=== PATIENT | male | born 1990 | race Caucasian/White ===

== ENCOUNTER 2020-02-12 02:21 | Emergency (ER) | payer MEDICAID ==
--- NOTE | 2020-02-12 02:57 | ED Physician Documentation ---
History of Present Illness - Stated complaint Stated Complaint: FEVER/WEAK - Chief complaint Chief Complaint: Fever - History obtained from History obtained from: Patient - History of Present Illness Timing: How many weeks ago (1) Improved by: no ameliorating factors Worsened by: no exacerbating factors - Additonal information Additional information: c/o 1 week of chills, sweats, generalized weakness. mild dyspnea and cough, although cough has been improving.mstates fevers although Tmax at home 99.3 (he is febrile on ED presentation) Review of Systems Constitutional: reports: Fever, Chills, Myalgias, Fatigue, Sweats Nose: reports: Reviewed and negative Throat: reports: Reviewed and negative Cardiac: denies: Chest pain / pressure Respiratory: reports: Dyspnea, Cough GI: reports: Reviewed and negative PD PAST MEDICAL HISTORY - Past Medical History Past Medical History: No Cardiovascular: None Respiratory: None Neuro: None Endocrine/Autoimmune: None GI: None : None HEENT: None Psych: None Musculoskeletal: None Derm: None - Past Surgical History Past Surgical History: No - Allergies Allergies/Adverse Reactions: Allergies Allergy/AdvReac Type Severity Reaction Status Date / Time No Known Drug Allergies Allergy Verified 02/12/20 02:39 - Social History Does the pt smoke?: Yes Smoking Status: Current every day smoker Does the pt drink ETOH?: Yes Does the pt have substance abuse?: No - Immunizations Immunizations are current?: No - POLST Patient has POLST: No PD ED PE NORMAL - Vitals Vital signs reviewed: Yes - General General: Alert and oriented X 3, No acute distress, Well developed/nourished - HEENT HEENT: Moist mucous membranes, Pharynx benign - Neck Neck: Supple, no meningeal sign - Cardiac Cardiac: RRR, No murmur - Respiratory Respiratory: No respiratory distress, Clear bilaterally - Abdomen Abdomen: Soft, Non tender Results - Vitals Vitals: Vital Signs - 24 hr 02/12/20 02/12/20 02/12/20 02:35 03:29 04:21 Temperature 38.1 C H 37.1 C Heart Rate 113 H 92 Respiratory 17 16 17 Rate Blood Pressure 148/92 H 126/81 H O2 Saturation 98 95 02/12/20 02/12/20 05:49 05:50 Temperature Heart Rate 91 Respiratory 16 16 Rate Blood Pressure 132/82 H O2 Saturation 97 Oxygen O2 Source Room air - Rads (name of study) chest xray Radiology: Prelim report reviewed, See rad report PD MEDICAL DECISION MAKING - ED course Complexity details: reviewed results, re-evaluated patient, considered differential, d/w patient Departure - Departure Disposition: 01 Home, Self Care Clinical Impression: Fever Condition: Good Instructions: ED Fever Unconf Cause, ED Fever Control Discharge Date/Time: 02/12/20 05:50
[2020-02-12] MEDS ORDERED: ACETAMINOPHEN 325 MG TABLET PO STA (03:17)
--- NOTE | 2020-02-12 04:03 | XRAY Report ---
Reason: fever, dyspnea Procedure Date: 02/12/2020 Accession Number: [id number] / [id number] Procedure: XR - Chest 1 View X-Ray CPT Code: 69429 Final Report FULL RESULT: EXAM: CHEST RADIOGRAPHY EXAM DATE: 02/12/2020 03:53 AM. CLINICAL HISTORY: Fever, dyspnea. COMPARISON: None. TECHNIQUE: 1 view. FINDINGS: Lungs/Pleura: Low lung volumes, producing crowding of the pulmonary vasculature. No focal infiltrate, effusion, or pneumothorax. Mediastinum: Within exam limitations, the cardiomediastinal contour is normal. Other: None. IMPRESSION: Low lung volumes, but no evidence of acute cardiopulmonary disease. RADIA
[2020-02-12 06:03] VITALS: BP 132/82
== END 2020-02-12 05:50 | disposition home or self-care (01) ==
LOC: ED 02:21
DX: R50.9 Fever, unspecified (principal); R06.09 Other forms of dyspnea; R05 Cough; F17.200 Nicotine dependence, unspecified, uncomplicated
CPT/HCPCS: 71045; 87635; 99283; 99284; A9270; 81599

== ENCOUNTER 2020-02-23 06:57 | Emergency (ER) | payer MEDICAID ==
[2020-02-23] MEDS ORDERED: CHERRY SYRUP 10 ML UDC PO ONE (07:32)
[2020-02-23] MEDS ORDERED: DEXAMETHASONE 10 MG/ML VIAL PO STA (07:32)
--- NOTE | 2020-02-23 07:37 | ED Physician Documentation ---
PD HPI FEVER - Stated complaint Stated Complaint: FEVER/SOA - Chief complaint Chief Complaint: Fever - History obtained from History obtained from: Patient - History of Present Illness Timing - onset: Last night Timing duration: Hours Timing details: Gradual onset, Now resolved Associated symptoms: Chills, Ear pain, Chest pain, Dyspnea. No: Dry cough, Productive cough Contributing factors: Sick contact (He has been in his home for the past 2 weeks going out twice for groceries. He has 2 roomates. One is working on the [employer] and the other is [employer] and is just back from deployment and is quarantined at home. Neither has symptoms.) Similar symptoms before: No diagnosis Recently seen: Emergency Dept - Additional information Additional information: Previously well 29-year-old male has developed a fever last night with chills and aches. He was able to sleep he awoke this morning he had fever again felt some shortness of breath and pain in his left anterior chest and he became concerned and has come to the emergency department. He did have a fever 10 days ago and was evaluated here in the emergency department and a coronavirus test was done which was negative. The patient denies any respiratory symptoms other than a feeling of shortness of breath. He does have some muffled hearing and burning pain in his right ear. Review of Systems Constitutional: reports: Fever, Chills, Myalgias, Fatigue Eyes: denies: Decreased vision Ears: reports: Loss of hearing, Ear pain Nose: denies: Rhinorrhea / runny nose, Congestion Throat: denies: Sore throat Cardiac: reports: Chest pain / pressure. denies: Palpitations, Pedal edema, Calf pain Respiratory: reports: Dyspnea. denies: Cough, Wheezing GI: denies: Abdominal Pain, Nausea, Vomiting, Constipation, Diarrhea : denies: Dysuria PD PAST MEDICAL HISTORY - Past Medical History Cardiovascular: None Respiratory: None Neuro: None Endocrine/Autoimmune: None GI: None : None HEENT: None Psych: None Musculoskeletal: None Derm: None - Past Surgical History Past Surgical History: No - Present Medications Home Medications: Ambulatory Orders Medication Instructions Recorded Confirmed Azithromycin [Zithromax] 250 mg PO DAILY #6 tablet 02/23/20 - Allergies Allergies/Adverse Reactions: Allergies Allergy/AdvReac Type Severity Reaction Status Date / Time No Known Drug Allergies Allergy Verified 02/23/20 07:05 - Social History Does the pt smoke?: Yes Smoking Status: Current every day smoker Does the pt drink ETOH?: Yes Does the pt have substance abuse?: No - Immunizations Immunizations are current?: No - POLST Patient has POLST: No PD ED PE NORMAL - Vitals Vital signs reviewed: Yes (hypertensive mild) - General General: Alert and oriented X 3, No acute distress, Well developed/nourished - HEENT HEENT: Atraumatic, PERRL, EOMI, Pharynx benign, Dentition benign, Other (The left TM is minimally inflamed along the umbo with tympanosclerosis present inferiorly. The right is inflamed in the attic with distortion of the landmarks.) - Neck Neck: Supple, no meningeal sign, No bony TTP - Cardiac Cardiac: RRR, No murmur - Respiratory Respiratory: No respiratory distress, Clear bilaterally - Abdomen Abdomen: Soft, Non tender - Back Back: No CVA TTP, No spinal TTP - Derm Derm: Normal color, Warm and dry, No rash - Extremities Extremities: No deformity, No edema, No calf tenderness / cord - Neuro Neuro: Alert and oriented X 3, network designer 2-12 intact, No motor deficit, No sensory deficit, Normal speech Eye Opening: Spontaneous Motor: Obeys Commands Verbal: Oriented GCS Score: 15 - Psych Psych: Normal mood, Normal affect Results - Vitals Vitals: Vital Signs - 24 hr 02/23/20 02/23/20 07:05 07:35 Temperature 36.9 C Heart Rate 85 88 Respiratory 18 20 Rate Blood Pressure 143/82 H 139/78 H O2 Saturation 99 98 Oxygen O2 Source Room air - EKG (time done) 0720 Rate: Rate (enter#) (67) Rhythm: NSR Ischemia: Normal ST segments Compare to prior EKG: Old EKG unavailable Computer interpretation: Agree with computer - Rads (name of study) chest Radiology: Prelim report reviewed (Impression: Low lung volumes, mild but no evidence of acute cardiopulmonary disease.), EMP read indepedently, See rad report PD MEDICAL DECISION MAKING - ED course Complexity details: reviewed old records, reviewed results, re-evaluated patient, considered differential, d/w patient ED course: 29-year-old male with a fever for the second time the past 2 weeks has otitis on examination. I suspect this may be the culprit on this patient's recurrent fever. He has a paucity of other symptoms with the exception of the pain in the ear the burning pain. His pain in his chest was short-lived maybe 10 minutes and his dyspnea resolved as well. He has a normal-appearing electrocardiogram normal-appearing chest x-ray and I do not suspect CAD as a cause for the patient's symptoms and I did not pursue further testing. He is administered dexamethasone 10 mg orally we will place him on some azithromycin. He is retested for coronavirus. Departure - Departure Disposition: Home, Self Care Clinical Impression: Otitis media Qualifiers: Otitis media type: suppurative Chronicity: acute Laterality: right Recurrence: non-recurrent Spontaneous tympanic membrane rupture: without spontaneous rupture Qualified Code(s): H66.001 - Acute suppurative otitis media without spontaneous rupture of ear drum, right ear Condition: Stable Instructions: ED Otitis Media Acute Adult Follow-Up: [facility] [Provider Group] Prescriptions: Azithromycin [Zithromax] 250 mg PO DAILY #6 tablet
--- NOTE | 2020-02-23 08:00 | XRAY Report ---
Reason: chest pain Procedure Date: 02/23/2020 Accession Number: [id number] / [id number] Procedure: XR - Chest 1 View X-Ray CPT Code: 10370 Final Report FULL RESULT: EXAM: CHEST RADIOGRAPHY EXAM DATE: 02/23/2020 07:54 AM. CLINICAL HISTORY: Chest pain. COMPARISON: CHEST 1 VIEW 02/12/2020 3:31 AM. TECHNIQUE: 1 view. FINDINGS: Lungs/Pleura: No focal opacities evident. No pleural effusion. No pneumothorax. Mediastinum: Within exam limitations, the cardiomediastinal contour is normal. Other: None. IMPRESSION: No focal consolidation. RADIA
[2020-02-23 08:21] VITALS: BP 114/72
== END 2020-02-23 08:16 | disposition home or self-care (01) ==
LOC: ED 06:57
DX: H66.001 Acute suppurative otitis media without spontaneous rupture of ear drum, right ear (principal); F17.200 Nicotine dependence, unspecified, uncomplicated
CPT/HCPCS: 71045; 87635; 93005; 99284; A9270; 81599

== ENCOUNTER 2020-02-25 21:12 | Emergency (ER) | payer MEDICAID ==
--- NOTE | 2020-02-25 21:15 | ED Physician Documentation ---
History of Present Illness - Stated complaint Stated Complaint: CP/SOA - History obtained from History obtained from: Patient (the patient is a 29 y/o m who p/w flu like symptoms that he has had for several weeks now, this is his 3rd visit for the same symptoms. he is c/o feeling that his ears are burning and a mild cough without chest pain, syncope, hemoptysis, headaches, neck pain or rashes. he is currently taking azithromycin, has had 2 negative covid tests, flu test was nev er ordered, had a negagive cxr 2 days ago, neg ekg as well, reports he is otherwise healthy and up to date on all of his immunizations. took ibuprofen 12 hours earlier. denies lower extremity swelling, reports his brother and parents are all healthy.) Review of Systems Constitutional: reports: Chills Eyes: reports: Reviewed and negative Ears: reports: Ear pain Nose: reports: Rhinorrhea / runny nose Throat: reports: Sore throat Cardiac: reports: Reviewed and negative Respiratory: reports: Cough GI: reports: Reviewed and negative : reports: Reviewed and negative Skin: reports: Reviewed and negative Musculoskeletal: reports: Reviewed and negative Neurologic: reports: Reviewed and negative Psychiatric: reports: Reviewed and negative Endocrine: reports: Reviewed and negative Immunocompromised: reports: Reviewed and negative PD PAST MEDICAL HISTORY - Past Medical History Cardiovascular: None Respiratory: None Neuro: None Endocrine/Autoimmune: None GI: None : None HEENT: None Psych: None Musculoskeletal: None Derm: None - Past Surgical History Past Surgical History: No - Present Medications Home Medications: Ambulatory Orders Medication Instructions Recorded Confirmed Azithromycin [Zithromax] 250 mg PO DAILY #6 tablet 02/23/20 - Allergies Allergies/Adverse Reactions: Allergies Allergy/AdvReac Type Severity Reaction Status Date / Time No Known Drug Allergies Allergy Verified 02/25/20 21:18 - Social History Does the pt smoke?: Yes Smoking Status: Current every day smoker Does the pt drink ETOH?: Yes Does the pt have substance abuse?: No - Immunizations Immunizations are current?: No - POLST Patient has POLST: No PD ED PE NORMAL - Vitals Vital signs reviewed: Yes - General General: Alert and oriented X 3, No acute distress, Well developed/nourished - HEENT HEENT: Atraumatic, PERRL, EOMI, Ears normal, Moist mucous membranes, Pharynx benign, Dentition benign - Neck Neck: Supple, no meningeal sign, No bony TTP, No adenopathy, Thyroid normal, No JVD, No bruit - Cardiac Cardiac: RRR, No murmur, Strong equal pulses - Respiratory Respiratory: No respiratory distress, Clear bilaterally - Abdomen Abdomen: Normal bowel sounds, Soft, Non tender, Non distended, No organomegaly - Back Back: No CVA TTP, No spinal TTP - Derm Derm: Normal color, Warm and dry, No rash - Extremities Extremities: No deformity, No tenderness to palpate, Normal ROM s pain, No edema, No calf tenderness / cord - Neuro Neuro: Alert and oriented X 3, publication manager 2-12 intact, No motor deficit, No sensory deficit, Normal speech - Psych Psych: Normal mood, Normal affect Results - Vitals Vitals: Vital Signs - 24 hr 02/25/20 02/25/20 02/25/20 21:14 21:43 22:23 Temperature 36.5 C Heart Rate 63 76 55 L Respiratory 18 17 17 Rate Blood Pressure 126/82 H 121/76 122/72 O2 Saturation 98 97 96 Oxygen O2 Source Room air - EKG (time done) 21:25 Rate: Other (no stemi) Departure - Departure Disposition: 01 Home, Self Care Clinical Impression: URI (upper respiratory infection) Qualifiers: URI type: unspecified URI Qualified Code(s): J06.9 - Acute upper respiratory infection, unspecified Condition: Stable Instructions: ED Viral Syndrome Follow-Up: Raf Brown DO [Provider Admit Priv/Credential] - Tomorrow
[2020-02-25 22:25] VITALS: BP 122/72
== END 2020-02-25 22:40 | disposition home or self-care (01) ==
LOC: ED 21:12
DX: J06.9 Acute upper respiratory infection, unspecified (principal); F17.200 Nicotine dependence, unspecified, uncomplicated
CPT/HCPCS: 93005; 99283; 99284

== ENCOUNTER 2020-03-28 22:27 | Emergency (ER) | payer MEDICAID ==
--- NOTE | 2020-03-28 22:38 | ED Physician Documentation ---
PD HPI CHEST PAIN - Stated complaint Stated Complaint: CHEST TIGHTNESS/HOT - Chief complaint Chief Complaint: Cardiac - History obtained from History obtained from: Patient - History of Present Illness Timing - onset: How many weeks ago (1) Timing - details: Gradual onset, Waxing and waning Quality: Tightness Location: Other (entire chest) Radiation: Other (no radiation) Improved by: Nothing Worsened by: Other (no exacerbating factors) Associated symptoms: No: Shortness of air, Diaphoresis, Nausea, Vomiting, Feeling faint / dizzy, General Weakness, Palpitations, Cough Recently seen: Emergency Dept (T+R 3 times last month for similar symptoms) - Additional information Additional information: "my whole body feels very warm, my chest feels really tight". also c/o right ear pain. Symptoms x 1 week, although he had similar symptoms last month for which he was T+R from this ED 3 times without abnormal findings on (limited) tests (CXR x 2, coronavirus). He was found to have right OM on one visit and was rx zithromax. He says he completed the course of antibiotic and had resolution of symptoms until 1 week ago Review of Systems Constitutional: reports: Other (reports fever, although Tmax 99.8 (afebrile in ED)) Ears: reports: Ear pain (right) Throat: denies: Sore throat Cardiac: reports: Chest pain / pressure (tightness). 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 denies: Dyspnea, Wheezing GI: reports: Reviewed and negative : denies: Dysuria, Frequency Skin: denies: Rash PD PAST MEDICAL HISTORY - Past Medical History Cardiovascular: None Respiratory: None Neuro: None Endocrine/Autoimmune: None GI: None : None HEENT: None Psych: None Musculoskeletal: None Derm: None - Past Surgical History Past Surgical History: No - Present Medications Home Medications: Ambulatory Orders Medication Instructions Recorded Confirmed Amox/Clav 875/125 [Augmentin] 1 each PO Q12H #14 tablet 03/28/20 - Allergies Allergies/Adverse Reactions: Allergies Allergy/AdvReac Type Severity Reaction Status Date / Time No Known Drug Allergies Allergy Verified 03/28/20 22:33 - Social History Does the pt smoke?: Yes Smoking Status: Current every day smoker Does the pt drink ETOH?: Yes Does the pt have substance abuse?: No - Immunizations Immunizations are current?: No - POLST Patient has POLST: No PD ED PE NORMAL - Vitals Vital signs reviewed: Yes - General General: Alert and oriented X 3, No acute distress, Well developed/nourished - HEENT HEENT: Moist mucous membranes, Pharynx benign - Neck Neck: Supple, no meningeal sign - Cardiac Cardiac: RRR, No murmur - Respiratory Respiratory: No respiratory distress, Clear bilaterally - Abdomen Abdomen: Soft, Non tender PD ED PE EXPANDED - HEENT HEENT: R TM red Results - Vitals Vitals: Vital Signs - 24 hr 03/28/20 03/28/20 22:30 23:31 Temperature 36.6 C 36.7 C Heart Rate 95 63 Respiratory 16 16 Rate Blood Pressure 156/87 H 126/72 O2 Saturation 98 95 Oxygen O2 Source Room air PD MEDICAL DECISION MAKING - ED course Complexity details: reviewed old records, considered differential, d/w patient Departure - Departure Disposition: Home, Self Care Clinical Impression: Otitis media Qualifiers: Otitis media type: suppurative Chronicity: acute Laterality: right Recurrence: recurrent Spontaneous tympanic membrane rupture: without spontaneous rupture Qualified Code(s): H66.004 - Acute suppurative otitis media without spontaneous rupture of ear drum, recurrent, right ear Condition: Good Instructions: ED Chest Pain Atypical Unkn Cause, ED Otitis Media Acute Adult Prescriptions: Amox/Clav 875/125 [Augmentin] 1 each PO Q12H #14 tablet Comments: Follow up with your primary care provider. If you do not have a doctor, contact your insurance provider to request referral to a general practitioner so that you can establish yourself with their practice; this will be important for both regular check-ups as well as follow-up visits after evaluations in the emergency department. Discharge Date/Time: 03/28/20 23:31
[2020-03-28] MEDS ORDERED: AMOX/CLAV 875 MG/125 MG TABLET PO STA (23:10)
[2020-03-28 23:31] VITALS: BP 126/72
== END 2020-03-28 23:31 | disposition home or self-care (01) ==
LOC: ED 22:27
DX: H66.004 Acute suppurative otitis media without spontaneous rupture of ear drum, recurrent, right ear (principal); R07.89 Other chest pain; F17.200 Nicotine dependence, unspecified, uncomplicated
CPT/HCPCS: 93005; 99283; 99284; A9270

== ENCOUNTER 2020-07-24 06:42 | Emergency (ER) | payer MEDICAID ==
[2020-07-24] MEDS ORDERED: CHERRY SYRUP 10 ML UDC PO ONE (08:11)
[2020-07-24] MEDS ORDERED: DEXAMETHASONE 10 MG/ML VIAL PO STA (08:11)
--- NOTE | 2020-07-24 08:13 | ED Physician Documentation ---
PD HPI HEENT - Stated complaint Stated Complaint: RT EAR PX, PIMENTEL - Chief complaint Chief Complaint: General - History obtained from History obtained from: Patient - History of Present Illness Timing - onset: Enter time (399), Today Timing - duration: Hours Timing - details: Gradual onset, Still present Location: Right ear Improves: Medication Associated symptoms: Fever, Congestion, Headache. No: Cough Similar symptoms before: Diagnosis (OM) Recently seen: Not recently seen - Additional information Additional information: 29-year-old male has developed ear pain on the right side as well as a headache without cough he has had a intermittent fever. He has had this happen to him previously within the last 6 months with otitis media. He remembers being treated with amoxicillin. 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 Review of Systems Constitutional: reports: Fever Eyes: denies: Decreased vision Ears: reports: Ear pain Nose: reports: Rhinorrhea / runny nose, Congestion Throat: denies: Sore throat Cardiac: denies: Chest pain / pressure Respiratory: denies: Dyspnea, Cough GI: denies: Nausea, Vomiting, Diarrhea PD PAST MEDICAL HISTORY - Past Medical History Past Medical History: No Cardiovascular: None Respiratory: None Neuro: None Endocrine/Autoimmune: None GI: None : None HEENT: None Psych: None Musculoskeletal: None Derm: None - Past Surgical History Past Surgical History: No - Present Medications Home Medications: Ambulatory Orders Medication Instructions Recorded Confirmed Amox/Clav 875/125 [Augmentin] 1 each PO Q12H #20 tablet 07/24/20 - Allergies Allergies/Adverse Reactions: Allergies Allergy/AdvReac Type Severity Reaction Status Date / Time No Known Drug Allergies Allergy Verified 07/24/20 06:50 - Social History Does the pt smoke?: Yes Smoking Status: Current every day smoker Does the pt drink ETOH?: Yes Does the pt have substance abuse?: No - Immunizations Immunizations are current?: No - POLST Patient has POLST: No PD ED PE NORMAL - Vitals Vital signs reviewed: Yes (hypertensive ) - General General: Alert and oriented X 3, No acute distress, Well developed/nourished - HEENT HEENT: Atraumatic, PERRL, EOMI, Moist mucous membranes, Pharynx benign, Other (The right TM is minimally erythematous in the attic with distortion of landmarks the left TM is markedly erythematous with distortion of landmarks. The pharynx is benign) - Neck Neck: Supple, no meningeal sign, No bony TTP - Cardiac Cardiac: RRR, No murmur - Respiratory Respiratory: No respiratory distress, Clear bilaterally - Derm Derm: Normal color, Warm and dry, No rash - Extremities Extremities: No deformity, No edema, No calf tenderness / cord - Neuro Neuro: Alert and oriented X 3, building supervisor 2-12 intact, No motor deficit, No sensory deficit, Normal speech Eye Opening: Spontaneous Motor: Obeys Commands Verbal: Oriented GCS Score: 15 - Psych Psych: Normal mood, Normal affect Results - Vitals Vitals: Vital Signs - 24 hr 07/24/20 06:48 Temperature 36.6 C Heart Rate 95 Respiratory 14 Rate Blood Pressure 145/83 H O2 Saturation 99 Oxygen O2 Source Room air PD MEDICAL DECISION MAKING - ED course Complexity details: considered differential, d/w patient ED course: 29 year old male with acute bilateral otitis is administered dexamethasone 10 mg orally and we will place him on a course of Augmentin. Departure - Departure Disposition: 01 Home, Self Care Clinical Impression: Otitis media Qualifiers: Otitis media type: suppurative Chronicity: acute Laterality: bilateral Recurrence: not specified as recurrent Spontaneous tympanic membrane rupture: without spontaneous rupture Qualified Code(s): H66.003 - Acute suppurative otitis media without spontaneous rupture of ear drum, bilateral Instructions: ED Otitis Media Acute Adult Follow-Up: [facility] [Provider Group] Prescriptions: Amox/Clav 875/125 [Augmentin] 1 each PO Q12H #20 tablet
[2020-07-24 08:22] VITALS: BP 140/80
== END 2020-07-24 08:21 | disposition home or self-care (01) ==
LOC: ED 06:42
DX: H66.003 Acute suppurative otitis media without spontaneous rupture of ear drum, bilateral (principal); F17.200 Nicotine dependence, unspecified, uncomplicated
CPT/HCPCS: 99282; 99284; A9270

== ENCOUNTER 2020-09-09 17:18 | Emergency (ER) | payer MEDICAID ==
--- NOTE | 2020-09-09 18:00 | XRAY Report ---
PROCEDURE: Chest 1 View X-Ray INDICATIONS: Chest Pain TECHNIQUE: One view of the chest was acquired. COMPARISON: Single view the chest dated 02/23/2020 FINDINGS: Surgical changes and devices: None. Lungs and pleura: No pleural effusions or pneumothorax. Lungs are clear. Mediastinum: Mediastinal contours appear normal. Heart size is normal. Bones and chest wall: No suspicious bony lesions. Overlying soft tissues appear unremarkable. IMPRESSION: No acute cardiopulmonary findings. Reviewed by: Marilyn Salazar MD on 09/09/2020 5:58 PM PST Approved by: Marilyn Salazar MD on 09/09/2020 5:58 PM [facility] Station ID: [id number]
--- NOTE | 2020-09-09 18:19 | ED Physician Documentation ---
History of Present Illness - Stated complaint Stated Complaint: HEADACHE/CP - Chief complaint Chief Complaint: Cardiac - History obtained from History obtained from: Patient - Additonal information Additional information: 22-year-old male presents to the emergency department for evaluation of 2 concerns 1. He reports chest pain that has been intermittent since Monday. He denies that it is pleuritic or is accompanied by shortness of breath or orthopnea. He denies that the chest pain is exertional. It occurs randomly sometimes at rest and will last about 10 minutes. This gentleman is a former tobacco user recently quitting smoking about a week and a half ago. He denies alcohol or drug use. He has no previous history of coronary artery disease. He denies a history of diabetes or hypertension. He has no unilateral leg swelling, cough or fevers. 2. He reports constant headaches for 6 months. They are present in the morning when he wakes up. He has not had any dizziness or fainting. He denies slurred speech facial droop arm or leg weakness. He states that he sometimes takes Tylenol which helps with the headaches. He recently established with a primary care provider and was told to come to the ER for evaluation of headaches. He has no fevers history of injection drug use. Review of Systems Constitutional: denies: Fever, Chills, Myalgias Eyes: denies: Loss of vision, Decreased vision, Photophobia, Discharge Ears: denies: Loss of hearing, Ear pain Nose: denies: Rhinorrhea / runny nose, Congestion Throat: denies: Dental pain / toothache, Oral lesions / sores, Sore throat, Reviewed and negative Cardiac: reports: Chest pain / pressure. denies: Palpitations, Calf pain Respiratory: denies: Dyspnea, Cough GI: denies: Abdominal Pain, Nausea, Vomiting, Constipation, Diarrhea : denies: Dysuria, Frequency Skin: denies: Rash, Lesions Musculoskeletal: denies: Neck pain, Back pain, Joint pain Neurologic: reports: Headache. denies: Generalized weakness, Focal weakness, Numbness, Difficulty speaking, Syncope, Seizure, Confused, Altered mental status, Head injury, LOC Psychiatric: denies: Depressed, Suicidal PD PAST MEDICAL HISTORY - Past Medical History Cardiovascular: None Respiratory: None Neuro: None Endocrine/Autoimmune: None GI: None : None HEENT: None Psych: None Musculoskeletal: None Derm: None - Past Surgical History Past Surgical History: No - Present Medications Home Medications: Ambulatory Orders Medication Instructions Recorded Confirmed Ibuprofen [Motrin] 600 mg PO Q6H PRN #30 tab 09/09/20 - Allergies Allergies/Adverse Reactions: Allergies Allergy/AdvReac Type Severity Reaction Status Date / Time No Known Drug Allergies Allergy Verified 09/09/20 17:27 - Social History Does the pt smoke?: Yes Smoking Status: Current every day smoker Does the pt drink ETOH?: Yes Does the pt have substance abuse?: No - Immunizations Immunizations are current?: No - POLST Patient has POLST: No PD ED PE EXPANDED - General General: Alert, No acute distress, Well developed/nourished, Other (obese) - HEENT HEENT: PERRL, EOMI, Ears normal, Moist mucous membranes, Pharynx normal - Eyes Eyes: PERRL, EOMI - Neck Neck: Supple w/out meningeal sx, No tenderness - Cardiac Cardiac: Regular Rate, Radial strong equal, Cap refill < 2 sec. No: Murmur Present - Respiratory Respiratory: Clear to ausultation juan. No: Distress, Labored - Abdomen Abdomen: Normal Bowel sounds. No: Tender to palpation - Extremities Extremities: Normal. No: Pedal edema bilateral, Right calf TTP/cord, Left calf TTP/cord - Neuro Neuro: Alert and Oriented X 3, CNII-XII intact, CN deficit, Cerebellar nl, Normal gait, Normal finger nose, Normal speech - GCS Eye Opening: Spontaneous Motor: Obeys Commands Verbal: Oriented Total: 15 Results - Vitals Vitals: Vital Signs - 24 hr 09/09/20 09/09/20 09/09/20 17:27 18:20 19:08 Temperature 37.1 C 37.2 C 36.2 C L Heart Rate 96 95 100 Respiratory 18 16 21 Rate Blood Pressure 138/77 H 131/82 H 113/78 O2 Saturation 98 99 98 Oxygen O2 Source Room air - EKG (time done) 1736 Rate: Rate (enter#) (99) Rhythm: NSR [place]: Normal Intervals: Normal [place] QRS: Normal Ischemia: Q waves (inferior leads; unchanged) Compare to prior EKG: Unchanged from prior EKG Computer interpretation: Agree with computer - Labs Labs: Laboratory Tests 09/09/20 09/09/20 09/09/20 18:40 18:40 18:40 WBC 11.4 H RBC 5.57 Hgb 16.5 Hct 47.7 MCV 85.6 MCH 29.6 MCHC 34.6 RDW 13.5 Plt Count 219 MPV 12.5 H Neut # (Auto) 7.9 H Lymph # (Auto) 2.6 Taney # (Auto) 0.7 Eos # (Auto) 0.2 Baso # (Auto) 0.1 Absolute Nucleated RBC 0.00 Nucleated RBC % 0.0 Sodium 139 Potassium 3.9 Chloride 98 L Carbon Dioxide 26 Anion Gap 15.0 H BUN 12 Creatinine 1.0 Estimated GFR (MDRD) 89 Glucose 130 H Calcium 9.1 Total Bilirubin 1.4 H AST 39 ALT 77 H Alkaline Phosphatase 65 Troponin I High Sens 3.4 Total Protein 7.8 Albumin 4.1 Globulin 3.7 Albumin/Globulin Ratio 1.1 Lipase 29 TSH 09/09/20 18:40 WBC RBC Hgb Hct MCV MCH MCHC RDW Plt Count MPV Neut # (Auto) Lymph # (Auto) Taney # (Auto) Eos # (Auto) Baso # (Auto) Absolute Nucleated RBC Nucleated RBC % Sodium Potassium Chloride Carbon Dioxide Anion Gap BUN Creatinine Estimated GFR (MDRD) Glucose Calcium Total Bilirubin AST ALT Alkaline Phosphatase Troponin I High Sens Total Protein Albumin Globulin Albumin/Globulin Ratio Lipase TSH 1.08 - Rads (name of study) CXR Radiology: Final report received (No acute cardiopulmonary process) CT head Radiology: Final report received (Somewhat limited exam exam given motion artifact however no acute intracranial findings.) PD MEDICAL DECISION MAKING - ED course Complexity details: reviewed results, re-evaluated patient, considered differential, d/w patient, d/w family ED course: 30-year-old male presents emergency department with 2 concerns. The first is chest pain that he has had intermittently since Monday. EKG here is unchanged from previous. There are Q waves in the inferior leads however again this is not different than his most recent EKG. High-sensitivity troponin is negative. Chest x-ray is without focal opacity cardiomegaly or findings of pulmonary edema. History and exam not consistent with congestive heart failure. My suspicion for acute coronary syndrome in this gentleman is very low. I have advised close follow-up with his primary care provider. 2. He also reports constant headaches for 6 months. Headaches typically present upon waking. He has had no focal neuro deficits. Head CT did not show any acute intracranial findings. Normal pressure hydrocephalus remains in the differential. I have advised this patient to keep a headache diary over the next few months and continue follow-up with his primary care doctor. I do recommend that he take ibuprofen for analgesia. Emergent return precautions were discussed Departure - Departure Disposition: Home, Self Care Clinical Impression: Chest pain Qualifiers: Chest pain type: unspecified Qualified Code(s): R07.9 - Chest pain, unspecified Headache Qualifiers: Headache type: other headache syndrome Qualified Code(s): G44.89 - Other headache syndrome Condition: Critical Instructions: ED Chest Pain NonCardiac Prescriptions: Ibuprofen [Motrin] 600 mg PO Q6H PRN #30 tab PRN Reason: Pain Comments: Beryl daly the CT of your head did not show any acute findings. Your labs today are essentially normal and your EKG and chest x-ray do not look any different than they have in the past. I would like you to take ibuprofen as needed for pain. Please stay well-hydrated. Please discuss this ED visit with your primary care doctor. I would like you to keep a headache diary each day. Write down when you have the headaches what you have eaten and what activities are occurring. Return to the emergency department if you develop suddenly severe headache have uncontrolled vomiting or high fevers
--- NOTE | 2020-09-09 18:51 | CT Report ---
PROCEDURE: HEAD WO INDICATIONS: headaches for 6 months TECHNIQUE: Noncontrast 4.5 mm thick angled axial sections acquired from the foramen magnum to the vertex. For r adiation dose reduction, the following was used: automated exposure control, adjustment of mA and/or kV according to patient size. COMPARISON: None. FINDINGS: Image quality: Motion limits evaluation. CSF spaces: Basal cisterns are patent. No extra-axial fluid collections. Ventricles are normal in size and shape. Brain: No midline shift. No intracranial masses or hemorrhage. Christopher-white matter interface is norm al. Skull and face: Calvarium and visualized facial bones are intact, without suspicious lesions. Sinuses: Visualized sinuses and mastoids are clear. IMPRESSION: 1. Somewhat limited study given motion artifact. No acute intracranial findings. If further character ization is warranted, MRI of the brain could be used. Reviewed by: Marilyn Salazar MD on 09/09/2020 6:49 PM PST Approved by: Marilyn Salazar MD on 09/09/2020 6:49 PM PST Station ID: [id number]
[2020-09-09 18:53] LABS: BASOPHILS # (AUTO) 0.1 10^3/uL (0.0-0.1); BASOPHILS % (AUTO) 0.4 %; EOSINOPHILS # (AUTO) 0.2 10^3/uL (0.0-0.7); EOSINOPHILS % (AUTO) 1.3 %; HGB - HEMOGLOBIN 16.5 g/dL (14.0-18.0); LYMPHOCYTES # (AUTO) 2.6 10^3/uL (1.5-3.5); LYMPHOCYTES % (AUTO) 22.5 %; MEAN CORPUSCULAR HEMOGLOBIN 29.6 pg (27.0-31.0); MEAN CORPUSCULAR HGB CONC 34.6 g/dL (32.0-36.0); MEAN CORPUSCULAR VOLUME 85.6 fL (80.0-94.0); MEAN PLATELET VOLUME 12.5 fL (7.4-11.4); MONOCYTES # (AUTO) 0.7 10^3/uL (0.0-1.0); MONOCYTES % (AUTO) 5.9 %; NEUTROPHILS # (AUTO) 7.9 10^3/uL (1.5-6.6); NEUTROPHILS % (AUTO) 69.1 %; PLT - PLATELET COUNT 219 10^3/uL (130-450); RED BLOOD COUNT 5.57 10^6/uL (4.70-6.10); RED CELL DISTRIBUTION WIDTH 13.5 % (12.0-15.0); WHITE BLOOD COUNT 11.4 x10^3/uL (4.8-10.8)
[2020-09-09 19:06] LABS: ALBUMIN 4.1 g/dL (3.2-5.5); ALBUMIN/GLOBULIN RATIO 1.1 (1.0-2.2); BILIRUBIN,TOTAL 1.4 mg/dL (0.2-1.0); CALCIUM 9.1 mg/dL (8.5-10.3); TOTAL PROTEIN 7.8 g/dL (6.7-8.2)
[2020-09-09 19:37] VITALS: BP 114/74
== END 2020-09-09 20:00 | disposition home or self-care (01) ==
LOC: ED 17:18
DX: R07.9 Chest pain, unspecified (principal); G44.89 Other headache syndrome; Z87.891 Personal history of nicotine dependence
CPT/HCPCS: 36415; 70450; 71045; 80053; 83690; 84443; 84484; 85025; 93005; 99284

== ENCOUNTER 2020-11-12 03:15 | Emergency (ER) | payer MEDICAID ==
[2020-11-12] MEDS ORDERED: KETOROLAC 60 MG/2 ML VIAL IM STA (04:00)
--- NOTE | 2020-11-12 04:14 | ED Physician Documentation ---
PD HPI CHEST PAIN - Stated complaint Stated Complaint: CHEST PX, SOA - Chief complaint Chief Complaint: Cardiac - History obtained from History obtained from: Patient - Additional information Additional information: Patient comes emergency department chief complaint of parasternal chest pain that woke him up around 3:00 this morning. Pt was feeling fine when he went to bed. He states that when he woke up, he also noticed a sore feeling in his throat. He describes the pain as a more of a pressure sensation and a tightness. Patient states that he has been having this pain recurrently over the last year. He was seen here in August and had a full work-up done with labs, including cardiac, EKG, and chest x-ray, all of which were unremarkable. The patient was advised to follow-up with his primary care physician after that, but it does not seem that he has followed up. He has not had a stress test done. The patient does note that he has an appointment coming up tomorrow with his PCP. The patient states he felt short of breath, more because it hurts to take a deep breath. No air hunger. No nausea or vomiting. No lightheadedness or diaphoresis. Patient states that he has not noticed any swelling or pain in his lower extremities. No family history of MIs at young age. Patient was a smoker until about 7 months ago. He is not a diabetic. He has a history of morbid obesity and but is otherwise healthy. No other complaints at this time. He does note that the pain is still there. He states he used to take ibuprofen and Tylenol for it, but it did not do any good. Patient denies any history of indigestion. Review of Systems Ten Systems: 10 systems reviewed and negative Constitutional: reports: Reviewed and negative Eyes: reports: Reviewed and negative Ears: reports: Reviewed and negative Nose: reports: Reviewed and negative Throat: reports: Reviewed and negative Cardiac: reports: Chest pain / pressure. denies: Pedal edema, Calf pain Respiratory: reports: Reviewed and negative. denies: Dyspnea, Cough GI: reports: Reviewed and negative : reports: Reviewed and negative Skin: reports: Reviewed and negative Musculoskeletal: reports: Reviewed and negative Neurologic: reports: Reviewed and negative Psychiatric: reports: Reviewed and negative Endocrine: reports: Reviewed and negative Immunocompromised: reports: Reviewed and negative PD PAST MEDICAL HISTORY - Past Medical History Past Medical History: Yes Cardiovascular: Other Respiratory: None Neuro: None Endocrine/Autoimmune: None GI: None : None HEENT: None Psych: None Musculoskeletal: None Derm: None Other Past Medical History: hx of c/p- idiopathic - Past Surgical History Past Surgical History: No - Allergies Allergies/Adverse Reactions: Allergies Allergy/AdvReac Type Severity Reaction Status Date / Time No Known Drug Allergies Allergy Verified 11/12/20 03:19 - Social History Does the pt smoke?: Yes Smoking Status: Current every day smoker Does the pt drink ETOH?: No Does the pt have substance abuse?: No - Immunizations Immunizations are current?: No - POLST Patient has POLST: No PD ED PE NORMAL - Vitals Vital signs reviewed: Yes - General General: Alert and oriented X 3, No acute distress, Well developed/nourished (Obese patient who appears a little older than stated age.) - HEENT HEENT: Atraumatic, PERRL, EOMI, Moist mucous membranes - Neck Neck: Supple, no meningeal sign - Cardiac Cardiac: RRR, No murmur, Strong equal pulses - Respiratory Respiratory: No respiratory distress, Clear bilaterally - Abdomen Abdomen: Soft, Non tender, Non distended - Back Back: No CVA TTP - Derm Derm: Normal color, Warm and dry, No rash - Extremities Extremities: No deformity, No edema, No calf tenderness / cord - Neuro Neuro: Alert and oriented X 3, piggyback clerk 2-12 intact, Normal speech, Other (Grossly intact) - Psych Psych: Normal mood, Normal affect Results - Vitals Vitals: Vital Signs - 24 hr 11/12/20 11/12/20 11/12/20 03:19 03:24 03:36 Temperature 36.5 C 36.5 C 36.5 C Heart Rate 94 94 78 Respiratory 18 18 15 Rate Blood Pressure 158/97 H 158/97 H 130/69 O2 Saturation 97 97 98 11/12/20 04:24 Temperature 37.2 C Heart Rate 85 Respiratory 15 Rate Blood Pressure 147/87 H O2 Saturation 98 Oxygen O2 Source Room air - EKG (time done) 0320 Rate: Rate (enter#) (93) Rhythm: NSR [place]: Normal Intervals: Normal [place] QRS: Normal Ischemia: Normal ST segments, Q waves (unchanged from previous EKG Aug 2020) Compare to prior EKG: Unchanged from prior EKG PD MEDICAL DECISION MAKING - ED course Complexity details: reviewed old records, reviewed results, re-evaluated patient, considered differential, d/w patient ED course: I reviewed the patient's old records. He had an EKG today which was unremarkable, and unchanged from his previous. Discussed with the patient that he does have reproducible chest pain on palpation, and that he is extremely low risk for coronary artery disease. Additionally, he does not have any findings on history or physical exam that raise concern for more serious cause of chest pain. The patient that he had a very full work-up in the ED the last time was here for this, and that it is very important that he follows up. Patient states he has a an appointment tomorrow, and I have advised him to discuss with his doctor whether a stress test could be done. This will put the patient's mind at ease and close the loop on investigating the possibility of coronary artery disease. It is also possible that some of his chest discomfort episodes could be related to GERD, particularly with the throat discomfort involved. I advised the patient that he should talk to his doctor about whether endoscopy would be a good option for him. We have discussed home management of the symptoms as well as usual indications for return. Patient is given a dose of Toradol here in the emergency department. Departure - Departure Disposition: 01 Home, Self Care Clinical Impression: Chest wall pain Condition: Stable Instructions: ED Chest Pain Costochondritis Comments: Your EKG looks the same as last time, with no concerning findings. Overall, you are very low risk for a heart attack, and there is no sign of any of the other emergent causes of chest pain. Additionally, when you were here a couple of months ago, a full battery of tests was done to look for other potential serious causes of chest pain, and this was negative. You do have reproducible pain with palpation of your chest wall, which indicates that most likely, this pain is coming from the structures of the wall of your chest. As we have discussed, there is a nerve running under every single rib, and as well is a layer of muscle that sits between every pair of ribs. Your pectoralis muscles also attached to the sternum or central bone of your chest. Any of these can be a source of pain in the chest wall, and can cause a sense of tightness, pressure, sharp, or aching pain. At this point, there is no utility in repeating the test she just had done within the last couple of months. The most important thing at this point is to follow-up with your primary care physician and to discuss having a stress test done. You have very low risk for heart attack and most likely, stress test would be negative. However, this would provide some measure of certainty in peace of mind when you do have episodes of chest pain, as a negative stress test generally indicates, especially in a low risk person, that there are no blockages of significance in the arteries that bring blood to the heart muscle itself. At this point in time, you do not show evidence, either on history-taking or on physical exam, of blood clot, aneurysm, pneumothorax (hole popped in lung) or pneumonia. You may discuss with your doctor the possibility of endoscopy to further evaluate for acid reflux irritating the esophagus, which could also cause chest pain. Please continue your plans to see your doctor tomorrow. Discharge Date/Time: 11/12/20 04:25
[2020-11-12 04:25] VITALS: BP 147/87
== END 2020-11-12 04:25 | disposition home or self-care (01) ==
LOC: ED 03:15
DX: R07.89 Other chest pain (principal); R07.0 Pain in throat; E66.01 Morbid (severe) obesity due to excess calories; Z68.42 Body mass index [BMI] 45.0-49.9, adult; Z87.891 Personal history of nicotine dependence
CPT/HCPCS: 93005; 96372; 99283; 99284

== ENCOUNTER 2021-03-05 11:26 | Outpatient (CLI) | payer MEDICAID ==
[2021-03-05 11:41] LABS: BASOPHILS # (AUTO) 0.1 10^3/uL (0.0-0.1); BASOPHILS % (AUTO) 0.4 %; EOSINOPHILS # (AUTO) 0.2 10^3/uL (0.0-0.7); EOSINOPHILS % (AUTO) 1.2 %; HGB - HEMOGLOBIN 16.4 g/dL (14.0-18.0); LYMPHOCYTES # (AUTO) 2.9 10^3/uL (1.5-3.5); LYMPHOCYTES % (AUTO) 22.5 %; MEAN CORPUSCULAR HEMOGLOBIN 29.5 pg (27.0-31.0); MEAN CORPUSCULAR HGB CONC 34.9 g/dL (32.0-36.0); MEAN CORPUSCULAR VOLUME 84.7 fL (80.0-94.0); MEAN PLATELET VOLUME 12.1 fL (7.4-11.4); MONOCYTES # (AUTO) 0.9 10^3/uL (0.0-1.0); NEUTROPHILS # (AUTO) 8.7 10^3/uL (1.5-6.6); NEUTROPHILS % (AUTO) 68.4 %; PLT - PLATELET COUNT 229 10^3/uL (130-450); RED BLOOD COUNT 5.55 10^6/uL (4.70-6.10); RED CELL DISTRIBUTION WIDTH 13.2 % (12.0-15.0); WHITE BLOOD COUNT 12.7 x10^3/uL (4.8-10.8)
[2021-03-05 12:04] LABS: ALBUMIN 4.4 g/dL (3.2-5.5); ALBUMIN/GLOBULIN RATIO 1.2 (1.0-2.2); ALKALINE PHOSPHATASE 66 IU/L (42-121); ALT ALANINE AMINOTRANSFERASE 68 IU/L (10-60); AST ASPARTATE AMINOTRANSFERASE 38 IU/L (10-42); BILIRUBIN,TOTAL 1.4 mg/dL (0.2-1.0); BUN - BLOOD UREA NITROGEN 8 mg/dL (6-20); CARBON DIOXIDE - CO2 24 mmol/L (21-32); CHLORIDE 105 mmol/L (101-111); CHOL/HDL RATIO 7.1 (<5.0); CHOLESTEROL 200 mg/dL; CREATININE 0.8 mg/dL (0.6-1.2); GFR - MDRD 115 (>89); GLUCOSE 104 mg/dL (70-100); HDL CHOLESTEROL 28 mg/dL; LDL CHOLESTEROL,CALCULATED 112 mg/dL; POTASSIUM 3.4 mmol/L (3.5-5.0); SODIUM 139 mmol/L (135-145); TOTAL PROTEIN 8.1 g/dL (6.7-8.2); TRIGLYCERIDES 299 mg/dL; VLDL CHOLESTEROL 60 mg/dL
[2021-03-05 12:13] LABS: THYROID STIMULATING HORMONE 2.42 uIU/mL (0.34-5.60)
== END 2021-03-05 11:27 | disposition home or self-care (01) ==
LOC: LAB 11:26
PROVIDERS: ATTEND Physician Assistant
DX: R07.9 Chest pain, unspecified (principal); Z82.49 Family history of ischemic heart disease and other diseases of the circulatory system; E66.01 Morbid (severe) obesity due to excess calories
CPT/HCPCS: 36415; 80053; 80061; 83721; 84443; 85025